=== PATIENT | female | born 1990 | race Caucasian/White ===

== ENCOUNTER 2018-12-18 20:43 | Emergency (ER) | payer MEDICARE, OTHER ==
--- NOTE | 2018-12-18 20:56 | ED Physician Documentation ---
Hand Injury - HISTORIAN Historian: patient - HPI Stated Complaint: left hand pain Chief Complaint: Upper Extremity Problem Onset: yesterday Where: home Severity: moderate Duration: persistent since Context: other (unknown injury ) Location of Injury: L hand, L wrist Modifying Factors: pain on movement Further Comments: yes (She states she started to have pain yesterday. Pain is not improved with OTC meds . She has no swelling. No other complaints. She has pain in first finger of her left hand and wrist. She has no decrease ROM.) - ROS CONST: no problems - PAST HX Past History: none Immunizations: UTD Allergies/Adverse Reactions: Allergies Allergy/AdvReac Type Severity Reaction Status Date / Time latex Allergy Verified 12/18/18 21:17 milk Allergy Verified 12/18/18 21:17 metronidazole [From Flagyl] AdvReac Intermediate nauseous Verified 12/18/18 21:17 and doubled over cramps - SOCIAL HX Smoking History: non-smoker Alcohol Use: none Drug Use: none - FAMILY HX Family History: none - VITAL SIGNS Vital Signs: Vital Signs Temp Pulse Resp BP Pulse Ox 123/61 10/01/18 11:12 - REVIEWED ASSESSMENTS Nursing Assessment Reviewed: Yes Vitals Reviewed: Yes ED Results Lab/Radiology - Radiology Radiology Impressions: 3 views left hand Clinical history: Left hand pain Findings: There is no acute fracture or dislocation identified. Alignment is normal. The joint spaces are maintained. Electronically signed on Dec 18, 2018 9:29:24 PM CDT by: Vishnu Hoffman 3 views left wrist Clinical history: Left wrist pain Findings: No acute fracture or dislocation is identified. The alignment is normal. The joint spaces are maintained. Electronically signed on Dec 18, 2018 9:31:12 PM CDT by: Vishnu Hoffman Hand Injury Physical Exam - Exam General Appearance: no acute distress, alert Hand: nml inspection, no evidence of FB, tenderness (first finger and wrist with touch ), soft tissue tenderness, bony tenderness, pain. No: swelling, limited ROM Wrist: normal inspection, normal ROM, tender anatom. snuff box, pain on axial thumb load. No: swelling Neuro: sensation nml Vascular: no vascular compromise Tendons: tendon function nml Forearm/Elbow/Arm: uninjured above wrist Head/ENT: nml inspection Neck/Back: nml inspection, non-tender Resp/CVS: chest non-tender, breath sounds nml, heart sounds nml, no resp. distress, lungs clear, reg. rate & rhythm Abdomen: non-tender Discharge Clincal Impression: Hand pain, left Referrals: Primary Doctor,No [Primary Care Provider] - 2 Days Comments: 1. OTC meds as directed as needed for pain 2. Ice 3. DO NOT HOLD Hand gripped 4. Follow up with PCP IN 2 days if no improvement 5. Return to ER For any increasing concerns Condition: Stable Disposition: 01 HOME, SELF-CARE Decision to Admit: NO Date of Decison to Admit: 12/18/18 Decision Time: 21:32
[2018-12-18 21:16] VITALS: BP 113/77
--- NOTE | 2018-12-19 05:10 | Diagnostic Imaging Report ---
MICHELLE HUI [facility] [address] [facility] [address] [place], [place]. [address] Report Submission Date: Dec 18, 2018 9:31:12 PM CDT Patient Study Name: VIKTOR CARBAJAL Date: Dec 18, 2018 9:07:57 PM CDT Modality Type: DX Gender: F Description: WRIST 3 VIEWS OR MORE : 89 Institution: [facility] Physician: MICHELLE HUI 3 views left wrist Clinical history: Left wrist pain Findings: No acute fracture or dislocation is identified. The alignment is normal. The joint spaces are maintained. Electronically signed on Dec 18, 2018 9:31:12 PM CDT by: Vishnu EASTON
--- NOTE | 2018-12-19 05:12 | Diagnostic Imaging Report ---
MICHELLE HUI [facility] [address] [facility] [address] [place], [place]. [address] Report Submission Date: Dec 18, 2018 9:29:24 PM CDT Patient Study Name: VIKTOR CARBAJAL Date: Dec 18, 2018 9:07:57 PM CDT Modality Type: DX Gender: F Description: HAND 3 VIEWS OR MORE : 89 Institution: [facility] Physician: MICHELLE HUI 3 views left hand Clinical history: Left hand pain Findings: There is no acute fracture or dislocation identified. Alignment is normal. The joint spaces are maintained. Electronically signed on Dec 18, 2018 9:29:24 PM CDT by: Vishnu EASTON
== END 2018-12-18 21:37 | disposition home or self-care (01) ==
LOC: ED 20:43
DX: M79.642 Pain in left hand (principal)
CPT/HCPCS: 73110; 73130; 81025; 99281; 99283

== ENCOUNTER 2019-01-18 12:49 | Emergency (ER) | payer MEDICARE, OTHER ==
[2019-01-18 13:01] VITALS: BP 115/64
--- NOTE | 2019-01-18 13:23 | ED Physician Documentation ---
Sore Throat/Dental Pain - HISTORIAN Historian: patient - HPI Stated Complaint: sore throat Chief Complaint: Sore Throat Additional Information: Patient presents to ED with a 1 day history of sore throat and cough. Patient reports a history of strep throat. Denies headache, fever or nausea. Onset: hours (8) Associated Symptoms: sore throat, cough. denies: fever - ROS CONST: no problems CVS/RESP: denies: chest pain, shortness of breath GI/: denies: nausea, vomiting MS/SKIN/LYMPH: denies: muscle aches NEURO/PSYCH: denies: headache - PAST HX Past History: none Other History: none Allergies/Adverse Reactions: Allergies Allergy/AdvReac Type Severity Reaction Status Date / Time latex Allergy Verified 01/18/19 13:02 milk Allergy Verified 01/18/19 13:02 metronidazole [From Flagyl] AdvReac Intermediate nauseous Verified 01/18/19 13:02 and doubled over cramps Home Medications: Ambulatory Orders Medication Instructions Recorded NK 01/18/19 - SOCIAL HX Smoking History: non-smoker Alcohol Use: none Drug Use: none - FAMILY HX Family History: No - VITAL SIGNS Vital Signs: Vital Signs Temp Pulse Resp BP Pulse Ox 97.8 F 75 19 115/64 98 01/18/19 12:59 01/18/19 12:59 01/18/19 12:59 01/18/19 12:59 01/18/19 12:59 - REVIEWED ASSESSMENTS Nursing Assessment Reviewed: Yes Vitals Reviewed: Yes ED Results Lab/Radiology - Orders Orders: ED Orders Category Date Time Status Rapid Strep [GRP A STREP SCREEN] Stat Lab 01/18/19 Ordered Sore throat Physical Exam - EXAM General Appearance: no acute distress, alert Head/Neck: no lymphadenopathy Eyes: PERRL Mouth/Throat: widespread dental decay, pharyngeal erythema Respiratory: no resp. distress, breath sounds nml CVS: reg. rate & rhythm, heart sounds nml Abdomen: soft, normal bowel sounds Extremities: non-tender Skin: warm/dry Neuro/Psych: oriented x3, mood/affect nml Discharge Clincal Impression: Acute viral pharyngitis Referrals: Primary Doctor,No [Primary Care Provider] - 2 Days Additional Instructions: 1. Tylenol and/or Ibuprofen as needed for pain/fever 2. Salt water gargles every 6-8 hours 3. Warm tea with lemon and raw honey as needed 4. Cool mist vaporizer with sleep 5. Follow up with PCP within 1 week 6. Return to ER for new or worsening symptoms Condition: Stable Disposition: 01 HOME, SELF-CARE Decision to Admit: NO Date of Decison to Admit: 01/18/19 Decision Time: 13:26
== END 2019-01-18 13:30 | disposition home or self-care (01) ==
LOC: ED 12:49
DX: J02.9 Acute pharyngitis, unspecified (principal)
CPT/HCPCS: 87070; 87880; 99281; 99283